=== PATIENT | male | born 2000 | race Caucasian/White ===

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

== ENCOUNTER 2019-03-24 00:22 | Emergency (ER) | payer BC ==
--- NOTE | 2019-03-24 00:36 | EDPHY ---
H & P Stated Complaint: etoh and marijuana, multiple c/o Time Seen by Provider: 03/24/19 00:26 HPI/ROS: Chief Complaint: Alcohol intoxication, vomiting HPI: 19-year-old male who was found at a fraternity house intoxicated. P patient has been drinking alcohol heavily tonight. He has vomited several times. Patient is also states that he feels "depleted" because it he has been eating for the last 2 days. He has been taking Vyvanse to help him study and this decreases his appetite. No fainting. No injuries. No chest pain or shortness of breath. He is feeling better after Zofran by EMS. ROS: 10 systems were reviewed and were negative except those elements noted in the HPI. PMH: Attention deficit hyperactivity disorder Social History: Positive for alcohol Family History: non-contributory Physical Exam: Gen: Awake, alert, no acute distress HEENT: Atraumatic Nose: no epistaxis or deformity Eyes: PERRLA, EOMI Mouth: Moist mucosa Neck: Supple, no step-offs or deformity Chest: Atraumatic, lungs clear to auscultation Heart: S1, S2 normal, no murmur Abd: Soft, non-tender, no guarding Back: Atraumatic Ext: no edema, atraumatic Skin: no rash Neuro: Sensation grossly intact, Strength 5/5 in bilateral upper and lower extremities - Personal History Current Tetanus Diphtheria and Acellular Pertussis (TDAP): Yes - Medical/Surgical History Hx Asthma: No Hx Chronic Respiratory Disease: No Hx Diabetes: No Hx Cardiac Disease: No Hx Renal Disease: No Hx Cirrhosis: No Hx Alcoholism: No Hx HIV/AIDS: No Hx Splenectomy or Spleen Trauma: No Other PMH: neck injuries - Social History Smoking Status: Current some day smoker Constitutional: Initial Vital Signs Temperature (C) 37.0 C 03/24/19 00:24 Heart Rate 115 H 03/24/19 00:24 Respiratory Rate 20 03/24/19 00:24 Blood Pressure 125/96 H 03/24/19 00:24 O2 Sat (%) 96 03/24/19 00:24 O2 Delivery Mode Room Air Allergies/Adverse Reactions: No Known Allergies Allergy (Verified 06/18/18 22:58) Home Medications: Medication Instructions Recorded Vyvanse 06/18/18 Medical Decision Making ED Course/Re-evaluation: 19-year-old slightly intoxicated male presenting with vomiting and general malaise. He is well-hydrated. He is awake alert. He is ambulating unassisted to the bathroom. Symptoms have improved after IV hydration by EMS. Will discharge with follow up with [facility] with any concerns. Departure - Departure Disposition: Home, Routine, Self-Care Clinical Impression: Alcoholic intoxication Condition: Good Instructions: Alcohol Intoxication (ED) Referrals: [facility] [Clinic] - As per Instructions Jer Waggoner MD [Medical Doctor] - As per Instructions
[2019-03-24 01:24] VITALS: BP 125/75
== END 2019-03-24 01:34 | disposition home or self-care (01) ==
LOC: EDUNIT#
DX: F10.920 Alcohol use, unspecified with intoxication, uncomplicated (principal); F17.200 Nicotine dependence, unspecified, uncomplicated